=== PATIENT | female | born 1970 | race Hispanic/Latino ===

== ENCOUNTER 2024-12-29 23:35 | Emergency (ER) | payer SELFPAY ==
[~2024-12-29] VITALS: Ht 152.4 cm; Wt 71.7 kg
[2024-12-29] MEDS: HYDROcodone/APAP 5/325 1 TAB TABLET PO ONE (23:44)
[2024-12-29] MEDS: ketOROlac 15MG/ML VIAL (15MG/ML) IM ONE (23:45)
--- NOTE | 2024-12-29 23:48 | ERN ---
General Chief Complaint: FOOT INJURY/PAIN Stated Complaint: FOOT INJURY Time Seen by MD: 23:36 History of Present Illness Initial Comments 54F presents for R foot injury. 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 Some bruising, NV intact. No other injury. Allergies: Coded Allergies: No Known Drug Allergies (Unverified Allergy, 02/15/13) Home Meds Active Scripts Meloxicam (Meloxicam) 15 Mg Tablet, 15 MG PO DAILY PRN for PAIN for 10 Days, #10 TAB Prov:IVY MENDEZ DO 12/30/24 Past Medical History Past Medical History: Diabetes-Type II Past Surgical History: Hysterectomy, Cholecystectomy ROS Dictation CONSTITUTIONAL: No chills, no fever, no weakness, no diaphoresis, no malaise. HEAD/FACE: No signs of trauma. EENT: No eye pain, no blurred vision, no tearing, no double vision, no ear pain, no ear discharge, no nose pain, no nasal congestion, no throat pain, no throat swelling, no mouth pain. RESPIRATORY: No cough, no orthopnea, no SOB, no stridor, no wheezing. CARDIOVASCULAR: No chest pain, no edema, no palpitations, no syncope. GASTROINTESTINAL/ABDOMINAL: No abdominal pain, no constipation, no diarrhea, no nausea, no vomiting. GENITOURINARY: No abnormal discharge, no dysuria, no frequent urination, no hematuria. No complaints of pain in the genitals. MUSCULOSKELETAL: Right foot pain INTEGUMENTARY: No change in color, no change in hair/nails, no dryness, no lesion, no lumps, no rash. NEUROLOGICAL/PSYCH: No anxiety, not depressed, no emotional problem, no headache, no numbness, no pre-existing deficit, no history of seizures, no tremors, no weakness. HEMATOLOGIC/LYMPHATIC: Not anemic, no history of blood clots, no apparent bleeding, no bruising, glands not swollen. All Systems Negative, Except as Noted. Physical Exam Physical Exam Dictation VITAL SIGNS: Reviewed. GENERAL APPEARANCE: Alert, oriented x3, moderate distress due to pain HEAD AND FACE: Non-traumatic. EYES: PERRL, pink conjunctivas, eyelid no trauma, anterior chamber clear. EARS: Pinnas intact and no signs of trauma or erythema. Ear canals clear and no discharge. TMs no erythema. NOSE: No discharge, no bleeding. OROPHARYNX: Mouth normal, teeth no caries, tongue pink. Pharynx clear, no erythema. Tonsils no exudates, no abscesses noted. Mucous membrane moist. NECK: Supple, non-tender, no thyromegaly, no masses, no JVD, no bruits. BREAST: Deferred. CHEST: No tenderness, no crepitus, no paradoxical movement, no retractions. LUNGS: Clear, well-ventilated, symmetric, no rales, no wheezing, no rhonchi, no stridor, good breath sounds bilaterally. HEART: Regular rate, regular rhythm, no murmur, no gallops. VASCULAR: No peripheral edema. ABDOMEN: Soft, positive bowel sounds, nondistended, no guarding, nontender, no rebound, no masses no hepatomegaly, no splenomegaly, no Fletcher's sign, no hernias. RECTAL: Deferred. GENITAL: Deferred. NEUROLOGICAL: Normal speech, gross motor function intact, gross sensory function intact. MUSCULOSKELETAL: Neck nontender, full range of motion, back nontender, full range of motion. EXTREMITIES: Nontender, full range of motion. SKIN: Color pink, dry, no turgor, no rash, no lacerations, no abrasions, no contusions. LYMPHATICS: Deferred. MDM CC: R foot crush injuury Historian: patient Limitations by social determinates of health: uninsured. Comorbidities: denies VSS Ddx: fx vs soft tissue injury. No signs of compartment injury, no NV compromise. R foot XR per my independent interpretation: no fracture. Treatment in ED: IM toradol Plan: meloxicam, HERON, PCP f/u as needed. Addendum: On 12/31/2024, after the patient was already discharged, the final radiology report came back and shows a nondisplaced tuft fracture. The patient was called by Terri. Patient made aware of the fracture, no change a plan other than she will need to follow up with her PCP. ED Course Orders Procedure Category Date Status Time Ketorolac PHA 12/30/24 Complete Tromethamine 15mg/Ml 00:00 Hydrocodone/Apap PHA 12/30/24 Complete 5/325 ([place] 5/325mg) 00:00 Foot Comp 3+Vws Rt RAD 12/29/24 Resulted 23:39 Current Medications Medications (Trade) Dose Ordered Sig/Mary Route PRN Reason Start Time Stop Time Status Last Admin Dose Admin Acetaminophen/ Hydrocodone Bitart (NORco 5/325MG) 1 tab ONCE ONCE PO 12/30/24 00:00 12/30/24 00:01 DC 12/29/24 23:44 Ketorolac Tromethamine (toRADol) 15 mg ONCE ONCE IM 12/30/24 00:00 12/30/24 00:01 DC 12/29/24 23:45 Vital Signs Date Time Temp Pulse Resp B/P (MAP) Pulse Ox O2 Delivery O2 Flow Rate FiO2 12/30/24 00:39 98.1 78 18 151/79 100 Room Air* 0 21 12/29/24 23:49 94 18 160/100 100 Room Air* 0 21 12/29/24 23:36 98.1 94 18 161/100 98 Room Air 0 DX & DISP Disposition: Discharge Departure Impression: Primary Impression: Crush injury of right foot Additional Impression: Toe fracture, right Condition: Stable Assign Patient to: The x-ray of your foot does not show any fractures. Your symptoms are consistent with soft tissue injury. Rest your foot. Bear weight as tolerated. Use an temo wrap as needed. I recommend icing the foot for 15 minutes twice per day for the next few days to reduce inflammation. Elevate your foot as much as possible. I recommend wearing a hard-soled shoe while walking. I've prescribed meloxicam, which is an NSAID pain medication. Take once per day as needed for pain. Do not mix this medication with ibuprofen, naproxen, or other NSAIDs. You can also take 1000mg of tylenol up to 4 times per day. This medication is over the counter. Please follow up with a primary doctor next week if you continue with symptoms. Return to the emergency department as needed. Scripts Meloxicam (Meloxicam) 15 Mg Tablet 15 MG PO DAILY PRN for PAIN for 10 Days, #10 TAB Prov: IVY MENDEZ DO 12/30/24 Referrals: PENG MERCHANT MD (PCP) IVY MENDEZ DO Dec 29, 2024 23:48
[2024-12-30 00:39] VITALS: BP 151/79; PULSE 78; RESP 18; TEMP 98.1; O2SAT 100
[2024-12-30] MEDS ORDERED: MELO-108 PO (00:43)
--- NOTE | 2024-12-30 08:52 | HMCIMG ---
FOOT COMP 3+VWS RT REASON: CRUSH INJURY, PAIN TECHNIQUE: 3 views were obtained. FINDINGS: There is a nondisplaced fracture of the distal tuft of the distal phalanx of the right first toe. Bones appear otherwise intact. Joint spaces are preserved. Soft tissues appear unremarkable. IMPRESSION: 1. Nondisplaced fracture distal phalanx of the right first toe.
== END 2024-12-30 00:50 | disposition home or self-care (01) ==
LOC: EDH 23:35
DX: S92.421A Displaced fracture of distal phalanx of right great toe, initial encounter for closed fracture (principal); E11.9 Type 2 diabetes mellitus without complications; Z90.49 Acquired absence of other specified parts of digestive tract; Z90.710 Acquired absence of both cervix and uterus; W23.0XXA Caught, crushed, jammed, or pinched between moving objects, initial encounter; Y93.89 Activity, other specified; Y92.89 Other specified places as the place of occurrence of the external cause; Y99.8 Other external cause status
CPT/HCPCS: 99283; 73630; 96372; J1885